=== PATIENT | female | born 1960 | race Caucasian/White ===

== ENCOUNTER 2017-07-24 00:15 | Emergency (ER) | payer BC, SELFPAY ==
[~2017-07-24] VITALS: Ht 170.2 cm; Wt 77.1 kg
[2017-07-24 00:25] VITALS: BP_SYST 162
[2017-07-24] MEDS ORDERED: [UNRECOGNIZED DRUG - CODE] PO (00:36)
[2017-07-24] MEDS ORDERED: NACL 0.9% 1,000 ML IV ONE (00:42)
[2017-07-24] MEDS ORDERED: LORazepam 2 MG/ML VIAL (FOR ER USE) IVP ONE (01:00)
[2017-07-24 01:43] LABS: BASOPHILS % (AUTO) 0.4 % (0.0-2.0); EOSINOPHILS # (AUTO) 0.2 K/uL (0.0-0.4); EOSINOPHILS % (AUTO) 2.8 % (0.0-4.0); HEMOGLOBIN 13.9 g/dL (12.0-16.0); LYMPHOCYTES # (AUTO) 1.8 K/uL (1.0-5.5); LYMPHOCYTES % (AUTO) 31.1 % (20.5-51.5); MEAN CORPUSCULAR HEMOGLOBIN 30 pg (27-31); MEAN CORPUSCULAR HGB CONC 34 % (32-36); MEAN CORPUSCULAR VOLUME 88 fL (79.0-98.0); MONOCYTES # (AUTO) 0.4 K/uL (0.0-1.0); MONOCYTES % (AUTO) 6.6 % (1.7-9.3); NEUTROPHILS # (AUTO) 3.5 K/uL (1.8-7.7); NEUTROPHILS % (AUTO) 59.1 % (40.0-70.0); PLATELET COUNT (AUTO) 202 K/uL (130-430); RED BLOOD CELL COUNT(AUTO) 4.65 MIL/uL (4.2-6.2); RED CELL DISTRIBUTION WIDTH 12.4 % (9.0-15.0); WHITE BLOOD COUNT (AUTO) 5.9 K/uL (4.8-10.8)
[2017-07-24 01:56] LABS: ANION GAP 9 (5-15); CHLORIDE 106 mmol/L (98-107); GLUCOSE 105 mg/dL (70-99); POTASSIUM 3.6 mmol/L (3.5-5.1); SODIUM SERUM 139 mmol/L (136-145)
[2017-07-24 01:57] LABS: ALANINE AMINOTRANSFERASE 27 U/L (12-78); ASPARTATE AMINOTRANSFERASE 20 U/L (10-37); CALCIUM 9.6 mg/dL (8.4-11.0); CREATININE 0.58 mg/dL (0.55-1.30); GFR AFRICAN AMERICAN 139 mL/min (>90); TOTAL BILIRUBIN 0.3 mg/dL (0.0-1.0); UREA NITROGEN, BLOOD 13 mg/dL (8-21)
[2017-07-24 02:40] VITALS: BP_SYST 148
== END 2017-07-24 02:40 | disposition home or self-care (01) ==
LOC: SED 00:15
DX: F41.9 Anxiety disorder, unspecified (principal); F43.0 Acute stress reaction; I10 Essential (primary) hypertension; F17.200 Nicotine dependence, unspecified, uncomplicated
CPT/HCPCS: 36415; 80053; 84484; 85025; 93005; 96374; 99285; J2060; J7030

== ENCOUNTER 2023-07-28 20:25 | Inpatient (IN) | payer BC ==
[~2023-07-28] VITALS: Ht 170.2 cm; Wt 83.0 kg
[~2023-07-28 20:25] MED LIST: [UNRECOGNIZED DRUG - CODE] PO
[2023-07-28 20:35] VITALS: BP_SYST 142; PULSE 90; RESP 19; TEMP 97.9; O2SAT 97
[2023-07-28 21:20] LABS: BASOPHILS % (AUTO) 0.3 % (0.0-2.0); EOSINOPHILS # (AUTO) 0.2 K/uL (0.0-0.4); EOSINOPHILS % (AUTO) 3.3 % (0.0-4.0); HEMATOCRIT 39.3 % (36-48); HEMOGLOBIN 13.9 g/dL (12.0-16.0); LYMPHOCYTES # (AUTO) 2.1 K/uL (1.0-5.5); LYMPHOCYTES % (AUTO) 29.8 % (20.5-51.5); MEAN CORPUSCULAR HEMOGLOBIN 31 pg (27-31); MEAN CORPUSCULAR HGB CONC 35 % (32-36); MEAN CORPUSCULAR VOLUME 87 fL (79.0-98.0); MONOCYTES # (AUTO) 0.5 K/uL (0.0-1.0); NEUTROPHILS # (AUTO) 4.2 K/uL (1.8-7.7); NEUTROPHILS % (AUTO) 59.6 % (40.0-70.0); PLATELET COUNT (AUTO) 239 K/uL (130-430); RED BLOOD CELL COUNT(AUTO) 4.51 MIL/uL (4.2-6.2); RED CELL DISTRIBUTION WIDTH 13.6 % (9.0-15.0); WHITE BLOOD COUNT (AUTO) 7.1 K/uL (4.8-10.8)
[2023-07-28 21:38] LABS: ANION GAP 8 (5-15); CALCIUM 9.2 mg/dL (8.4-11.0); CARBON DIOXIDE 27 mmol/L (23-29); CHLORIDE 104 mmol/L (98-107); GFR AFRICAN AMERICAN 72 mL/min (>90); GLUCOSE 123 mg/dL (74-106); POTASSIUM 3.5 mmol/L (3.5-5.1); SODIUM SERUM 139 mmol/L (136-145); UREA NITROGEN, BLOOD 19 mg/dL (8-21)
[2023-07-28 21:39] LABS: GFR NON AFRICAN-AMERICAN 60 mL/min (>90)
[2023-07-28] MEDS ORDERED: MORPHINE 4 MG INJ. 4 MG/ML VIAL IVP ONE (23:00)
[2023-07-28] MEDS ORDERED: NITROGLYCERIN 1 INCH (GM) OINT. TP ONE (23:00)
[2023-07-28] MEDS ORDERED: ASPIRIN 325 MG TABLET PO ONE (23:00)
[2023-07-28] MEDS ORDERED: BISO5TAB15 PO (23:33)
[2023-07-28] MEDS ORDERED: ASPI-1155 PO (23:33)
[2023-07-28] MEDS ORDERED: EZET10TA30 PO (23:33)
[2023-07-28] MEDS ORDERED: HYDR25TA4 PO (23:33)
[2023-07-29] MEDS ORDERED: MORPHINE 4 MG INJ. 4 MG/ML VIAL IVP ONE (03:15)
[2023-07-29] MEDS ORDERED: ONDANSETRON HCL 4 MG/2 ML VIAL IVP PRN ×2 (04:45→08:00)
[2023-07-29] MEDS ORDERED: HYDROcodone/ACETAMIN 5-325 MG TAB (NORCO/ VICODIN) PO PRN (04:45)
[2023-07-29] MEDS ORDERED: NITROGLYCERIN 0.4 MG TAB.SUBL SL PRN (04:45)
[2023-07-29] MEDS ORDERED: ZOLPIDEM TARTRATE 5 MG TABLET PO ONE (05:15)
[2023-07-29] MEDS ORDERED: LORazepam 2 MG/ML VIAL IVP PRN (08:00)
[2023-07-29] MEDS ORDERED: IPRATROPIUM BROM 0.5 MG/2.5 ML VIAL.NEB (ATROVENT) INH PRN (08:00)
[2023-07-29] MEDS ORDERED: ALBUTEROL SULFATE 0.083% 2.5 MG/3 ML VIAL.NEB INH PRN (08:00)
[2023-07-29] MEDS ORDERED: ALPRAZolam 0.25 MG TABLET PO ONE (08:45)
[2023-07-29] MEDS: ASPIRIN 81 MG TAB.CHEW PO SCH ×2 (08:59→09:32)
[2023-07-29 09:36] LABS: BASOPHILS % (AUTO) 0.4 % (0.0-2.0); EOSINOPHILS # (AUTO) 0.2 K/uL (0.0-0.4); EOSINOPHILS % (AUTO) 2.4 % (0.0-4.0); HEMATOCRIT 37.4 % (36-48); HEMOGLOBIN 13.2 g/dL (12.0-16.0); LYMPHOCYTES # (AUTO) 1.5 K/uL (1.0-5.5); LYMPHOCYTES % (AUTO) 23.9 % (20.5-51.5); MEAN CORPUSCULAR HEMOGLOBIN 31 pg (27-31); MEAN CORPUSCULAR HGB CONC 35 % (32-36); MEAN CORPUSCULAR VOLUME 87 fL (79.0-98.0); MONOCYTES # (AUTO) 0.5 K/uL (0.0-1.0); MONOCYTES % (AUTO) 7.5 % (1.7-9.3); NEUTROPHILS # (AUTO) 4.2 K/uL (1.8-7.7); NEUTROPHILS % (AUTO) 65.8 % (40.0-70.0); PLATELET COUNT (AUTO) 190 K/uL (130-430); RED BLOOD CELL COUNT(AUTO) 4.29 MIL/uL (4.2-6.2); RED CELL DISTRIBUTION WIDTH 13.7 % (9.0-15.0); WHITE BLOOD COUNT (AUTO) 6.4 K/uL (4.8-10.8)
[2023-07-29 10:08] VITALS: BP_SYST 114; PULSE 77; O2SAT 97
[2023-07-29 10:11] LABS: ALBUMIN 3.7 g/dL (3.4-4.8); CALCIUM 9.4 mg/dL (8.4-11.0); CREATININE 0.87 mg/dL (0.55-1.30); POTASSIUM 4.4 mmol/L (3.5-5.1); THYROID STIMULATING HORMONE 2.35 uIu/mL (0.34-4.82); TOTAL BILIRUBIN 0.3 mg/dL (0.0-1.0); TOTAL PROTEIN, SERUM 6.9 g/dL (6.4-8.3)
[2023-07-29] MEDS: METOPROLOL SUCCINATE 25 MG TAB.SR.24H (TOPROL XL) PO SCH (10:11)
[2023-07-29 11:09] LABS: HEMOGLOBIN A1C 5.04 % (<5.7)
[2023-07-29] MEDS ORDERED: ZOLPIDEM TARTRATE 5 MG TABLET PO PRN (16:30)
[2023-07-29 22:07] VITALS: BP_SYST 118; PULSE 81; RESP 18; TEMP 98.8; O2SAT 97
[2023-07-30] VITALS: BP_SYST 118; PULSE 78; RESP 18; TEMP 98.2; O2SAT 96
[2023-07-30] MEDS ORDERED: REGADENOSON 0.4 MG/5 ML SYRINGE IVP ONE (07:00)
[2023-07-30 08:23] VITALS: BP_SYST 124; PULSE 71; RESP 18; TEMP 98.2
[2023-07-30] MEDS ORDERED: TELM20TA8 PO (12:08)
[2023-07-30] MEDS: METOPROLOL SUCCINATE 25 MG TAB.SR.24H (TOPROL XL) PO SCH (12:14)
[2023-07-30] MEDS: ASPIRIN 81 MG TAB.CHEW PO SCH (12:14)
[2023-07-30] MEDS: ENOXAPARIN SODIUM 40 MG/0.4 ML SYRINGE SUBCUT SCH (12:14)
[2023-07-30 12:53] VITALS: BP_SYST 134; PULSE 85; RESP 15; TEMP 98.1; O2SAT 100
[2023-07-30 16:00] VITALS: BP_SYST 132; PULSE 65; RESP 18; TEMP 98.6; O2SAT 98
[2023-07-30 20:00] VITALS: O2SAT 99
[2023-07-30 20:08] VITALS: BP_SYST 131; PULSE 73; RESP 18; TEMP 98.1; O2SAT 99
[2023-07-31 00:25] VITALS: BP_SYST 132; PULSE 78; RESP 16; TEMP 97.6; O2SAT 94
[2023-07-31 08:00] VITALS: BP_SYST 127; PULSE 71; RESP 16; TEMP 98.5; O2SAT 97
[2023-07-31 08:53] VITALS: O2SAT 98
[2023-07-31] MEDS: METOPROLOL SUCCINATE 25 MG TAB.SR.24H (TOPROL XL) PO SCH (09:00)
[2023-07-31] MEDS: ENOXAPARIN SODIUM 40 MG/0.4 ML SYRINGE SUBCUT SCH (09:00)
[2023-07-31 12:00] VITALS: BP_SYST 125; PULSE 72; RESP 16; TEMP 98.4; O2SAT 97
[2023-07-31 14:39] VITALS: BP_SYST 127; PULSE 76; RESP 18; TEMP 98.5; O2SAT 97
== END 2023-07-31 15:15 | disposition short-term general hospital (02) | DRG 313 ==
LOC: SED 20:25 → STU 07-29 04:32
PROVIDERS: ADMIT Internal Medicine; ATTEND Internal Medicine
DX: R07.9 Chest pain, unspecified (principal); I10 Essential (primary) hypertension; E78.5 Hyperlipidemia, unspecified; Z79.82 Long term (current) use of aspirin; Z79.899 Other long term (current) drug therapy
CPT/HCPCS: 36415; 71045; 80048; 80053; 80061; 83037; 83880; 84443; 84484; 85025; 85379; 93005; 93017; 93306; 94640; 94760; 99285; A9500; G0378; J1650; J2270; J2405; J2785